=== PATIENT | male | born 1980 | race Caucasian/White ===

== ENCOUNTER 2020-02-27 16:36 | Emergency (ER) | payer OTHER, SELFPAY ==
--- NOTE | ~2020-02-27 | CT_ITS ---
EXAMINATION: CT abdomen pelvis w con DATE: 02/27/2020 18:11 INDICATION: Abdominal pain and diarrhea TECHNIQUE: Computed tomography (CT) of the abdomen and pelvis was performed with 100 mL Omnipaque-350 intravenous contrast. Automated exposure control and iterative reconstruction technique were employe d. The dose-length product was 1245.81 mGy-cm. COMPARISON: None FINDINGS: Lung bases are clear. Heart size is normal. No pericardial or pleural effusion. Diffuse hepatic steat osis with focal sparing along the gallbladder fossa. Gallbladder, spleen, pancreas and bilateral adre nal glands are normal. Bilateral renal cysts the largest measuring 8 mm the lower pole of the right k idney. There is prominent diverticulosis along the sigmoid colon without adjacent inflammatory change to suggest diverticulitis. Normal appendix. Fluid in the small bowel and proximal colon consistent with given history of diarrhea. Small fat-containing umbilical hernia. Bladder is normal. No free int raperitoneal gas or fluid. No pathologically enlarged abdominal or pelvic lymphadenopathy. Mild scatt ered degenerative skeletal changes. IMPRESSION: 1. Fluid in the small bowel and proximal colon consistent with given history of diarrhea. Correlate c linically for gastroenteritis. 2. Diffuse hepatic steatosis. 3. Small fat-containing umbilical hernia. Reviewed, dictated and finalized at location A. IMPRESSION: 1. Fluid in the small bowel and proximal colon consistent with given history of diarrhea. Correlate clinically for gastroenteritis. 2. Diffuse hepatic steatosis. 3. Small fat-containing umbilical hernia.
--- NOTE | ~2020-02-27 | XR_ITS ---
EXAMINATION: XR chest 1V portable DATE: 02/27/2020 18:21 INDICATION: Fever, nausea and diarrhea. TECHNIQUE: frontal view of the chest was obtained. COMPARISON: None FINDINGS: The lungs are clear with no focal airspace opacities, pulmonary edema, pleural effusion or pneumothor ax. The cardiomediastinal silhouette is normal. Visualized bones and soft tissues are unremarkable. IMPRESSION: 1. No acute cardiopulmonary disease. Reviewed, dictated and finalized at location A.
[2020-02-27 16:41] VITALS: BP 120/84; PULSE 108; RESP 19; TEMP 38.2; O2SAT 97
[2020-02-27 16:43] VITALS: BP 120/84; PULSE 110; RESP 16; O2SAT 97
--- NOTE | 2020-02-27 16:58 | ED.GENADULT ---
HPI - General Adult General Chief complaint: Fever Stated complaint: muscle aches, diarrhea, fever Time Seen by Provider: 02/27/20 16:37 Source: patient History of Present Illness HPI narrative: Patient is a 40 y/o male complaining of severe diarrhea for last 4 days. He states that his diarrhea is mostly water with no blood. There is no alleviating or exacerbating factor. He has some mild left lower abdominal pain. He also has fever up to 102, body ache and headache. He has some nausea, but no vomiting. He has no cough or SOB. He states that someone at work tested positive for COVID recently. Related Data Home Medications Medication Instructions Recorded Confirmed acetaminophen [Tylenol Extra 1,000 mg PO Q6H PRN 02/27/20 02/27/20 Strength] ergocalciferol (vitamin D2) 1,250 mcg PO WEEKLY 02/27/20 [Vitamin D2] Allergies Allergy/AdvReac Type Severity Reaction Status Date / Time shellfish derived Allergy Hives Verified 02/27/20 16:44 Review of Systems Constitutional: Constitutional: Reports chills, Reports fever(s), Reports headache(s) and Denies weakness Eyes: Eyes: Denies blurry vision ENT: Reports headache(s) and Denies neck pain Cardiovascular: Cardiovascular: Denies chest pain and Denies dyspnea Respiratory: Respiratory: Denies cough and Denies dyspnea Gastrointestinal: Gastrointestinal: Reports abdominal pain, Reports diarrhea, Reports nausea and Denies vomiting Genitourinary: Genitourinary: Denies hematuria and Denies dysuria Musculoskeletal: Musculoskeletal: Denies back pain and Denies neck pain Neurologic: Reports headache(s) and Denies weakness [facility] Social History Social History Gender identity (if verbalized by the patient): Male Exam Const: General: no acute distress and well developed Orientation/consciousness: oriented to person, oriented to place, oriented to time and patient oriented x3 HENMT: Head: normocephalic Ears: external ears normal General nose exam: Normal external nose present Eyes: General: appearance normal, both eyes and all related structures Conjunctivae: conjunctivae normal Neck: Neck: normal visual inspection and full ROM Chest: Chest palpation & inspection: normal inspection of the chest and no tenderness Resp: Effort & Inspection: normal respiratory effort Auscultation: clear to auscultation bilaterally Cardio: Rate: tachycardic Rhythm: regular rhythm GI: GI Palp: No abdominal tenderness and Yes Soft to palpation Skin: General skin exam: normal color and turgor normal Neuro: General: oriented to person, oriented to place, oriented to time and patient oriented x3 Cognition (Neuro): normal cognition Extrem: General: normal to inspection, full ROM and no pedal edema Psych: Appearance: grossly normal Mental Status: mental status grossly normal Affect: normal affect Course Vital Signs Vital signs: Vital Signs Temperature 38.2 C H 02/27/20 16:41 Pulse Rate 108 H 02/27/20 16:41 Respiratory Rate 19 02/27/20 16:41 Blood Pressure 120/84 02/27/20 16:41 Pulse Oximetry 97 02/27/20 16:41 Temperature 38.7 C H 02/27/20 17:06 Pulse Rate 81 02/27/20 19:59 Respiratory Rate 20 02/27/20 19:59 Blood Pressure 109/71 02/27/20 19:59 Pulse Oximetry 96 02/27/20 19:59 Medical Decision Making Vital Signs Vital Signs: Vital Signs Temperature 38.2 C H 02/27/20 16:41 Pulse Rate 108 H 02/27/20 16:41 Respiratory Rate 19 02/27/20 16:41 Blood Pressure 120/84 02/27/20 16:41 Pulse Oximetry 97 02/27/20 16:41 Temperature 38.7 C H 02/27/20 17:06 Pulse Rate 81 02/27/20 19:59 Respiratory Rate 20 02/27/20 19:59 Blood Pressure 109/71 02/27/20 19:59 Pulse Oximetry 96 02/27/20 19:59 Lab Data Result diagrams: 02/27/20 17:02 02/27/20 17:02 Labs: Lab Results 02/27/20 02/27/20 02/27/20 Range/Units 17:02 17:02 17:02
[2020-02-27 17:06] VITALS: BP 113/76; PULSE 99; RESP 16; TEMP 38.7; O2SAT 95
[2020-02-27] MEDS: SODIUM CHLORIDE 0.9% IV 1,000 ML 999 ML IV CONT (17:07)
[2020-02-27] MEDS: ONDANSETRON INJ 4 MG/2 ML VIAL IV PUSH (17:07)
[2020-02-27 17:12] LABS: Basophils Percent Auto 0.3 % (0.2-1.2); Eosinophils Percent Auto 0.3 % (0-4.4); Hematocrit 45.8 % (42.0-52.0); Hemoglobin 15.7 g/dL (14.0-18.0); Immature Granulocyte Absolute 0.01 K/mm3 (0.00-0.031); Immature Granulocyte Percent A 0.3 % (0-0.5); Lymphocytes Absolute Auto 0.89 K/mm3 (0.9-3.2); Lymphocytes Percent Auto 24.7 % (18.3-44.2); Mean Corpuscular HGB Conc 34.3 g/dl (32-36); Mean Corpuscular Hemoglobin 29.5 pg (26-34); Mean Corpuscular Volume 86.1 fl (80-100); Monocytes Absolute Auto 0.2 K/mm3 (0.1-0.6); Monocytes Percent Auto 5.8 % (2.6-8.5); Neutrophils Absolute Auto 2.5 K/mm3 (1.3-6.7); Neutrophils Percent Auto 68.6 % (45.5-73.1); Platelet Count Result 159 k/mm3 (150-375); Red Blood Count 5.32 M/mm3 (4.6-6.20); Red Cell Distribution Width 13.2 % (11.5-14.5); White Blood Count 3.6 K/mm3 (4.5-10.0)
[2020-02-27 17:25] LABS: Alanine Aminotransferase 48 U/L (4-50); Albumin Level 4.4 g/dL (3.5-5.1); Alkaline Phosphatase 50 U/L (38-126); Anion Gap 8 mmol/L (8-16); Aspartate Amino Transferase 36 U/L (17-59); Bilirubin,Total 0.2 mg/dL (0.2-1.3); Blood Urea Nitrogen 12 mg/dL (9-20); Calcium 8.5 mg/dL (8.4-10.2); Carbon Dioxide 26 mmol/L (22-30); Chloride 105 mmol/L (98-107); Estimated CRCL calculation 102 ml/min; Estimated Glomerular Filt Rate > 60; Glucose 104 mg/dL (75-110); Potassium 3.8 mmol/L (3.4-5.0); Sodium 139 mmol/L (137-145)
[2020-02-27] MEDS: ACETAMINOPHEN 325 MG TABLET 650 MG PO (17:39)
[2020-02-27 18:09] LABS: Add Urine Microscopic? NO; Appearance Urine Clear (Clear); Bilirubin Urine Negative (Negative); Blood Urine Negative (Negative); Color Urine Yellow (Yellow); Glucose Urine UA Negative (Negative); Ketones Urine Negative (Negative); Leukocyte Esterase Ur Negative LEU/UL (Negative); Nitrate Urine Negative (Negative); Protein Urine Negative (Negative); Specific Grav Ur 1.017 (1.001-1.035); Urobilinogen Urine Negative mg/dL (<2.0)
[2020-02-27 19:59] VITALS: BP 109/71; PULSE 81; RESP 20; O2SAT 96
[2020-02-28 12:40] LABS: SARS-CoV-2 RNA PCR Positive
== END 2020-02-27 20:01 | disposition home or self-care (01) ==
PROVIDERS: Emergency Provider Emergency Medicine; PCP Internal Medicine
DX: U07.1 COVID-19 (principal); K52.9 Noninfective gastroenteritis and colitis, unspecified
CPT/HCPCS: 36415; 71045; 74177; 80053; 81003; 83605; 85025; 87040; 87635; 96361; 96374; 99284; A9270; C9803; J2405; J7030; Q9967; U0003

== ENCOUNTER 2023-01-11 23:00 | Emergency (ER) | payer OTHER, SELFPAY ==
[2023-01-11 23:02] VITALS: BP 125/108; PULSE 82; RESP 16; TEMP 36.7; O2SAT 99
[2023-01-12] VITALS (15 sets, daily range): BP systolic 128–138; BP diastolic 71–82; O2SAT 96–100
--- NOTE | 2023-01-12 01:59 | ED.GENADULT ---
HPI - General Adult General Chief complaint: Extremity Problem,Nontraumatic Stated complaint: right leg pain Time Seen by Provider: 01/12/23 01:42 Source: patient Mode of arrival: ambulatory Limitations: no limitations History of Present Illness HPI narrative: This is a 42-year-old male who presents to the ED with chief complaint of right knee pain onset earlier this evening. Patient states that he has had a little bit of swelling to the right anterior knee. Denies any injuries or traumas. Denies any known insect bites or wounds. 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 He states he was not wearing his knee guards this week. Reports sensation feels off in the right lower extremity. Denies weakness. Denies erythema Related Data Home Medications Medication Instructions Recorded Confirmed naproxen sodium 220 mg tablet 220 mg PO BID PRN 10/02/22 10/04/22 (Aleve) Allergies Allergy/AdvReac Type Severity Reaction Status Date / Time shellfish derived Allergy Hives Verified 10/02/22 11:05 [facility] Surgical History Surgical History Salivary disorder Removal of gland 1988 Family History Family History Mother Breast cancer Father Heart disease Social History Social History Smoking status: Never smoker Alcohol intake: current Substance use: unknown Lack of Transportation: No Lack of Food: Never True Current Housing: I Have Housing Concerned About Future Housing: No Difficulty Paying Gas/Electric Bills: No Difficulty Paying for Meds: No Currently Unemployed: No Education: Bachelor's Degree Difficulty w/ Childcare or Family Care: No Gender identity (if verbalized by the patient): Male Exam Narrative: GENERAL: Well-appearing, well-nourished, and in no acute distress. HEAD: Normocephalic, atraumatic. EYES: PERRLA and EOMI. ENT: Nares clear, no rhinorrhea or epistaxis. Mucous membranes moist. Oropharynx without tonsillar hypertrophy exudate or other lesions. NECK: Supple. No adenopathy or masses. CHEST: No respiratory distress. Clear to auscultation. No wheezes rales or rhonchi HEART: Regular rate and rhythm. No murmur heard. Normal peripheral pulses. ABDOMEN: Soft, nontender, nondistended, normal active bowel sounds. MSK: RLE: Small area of tenderness and swelling to the Pes anserine bursa. No erythematous skin noted. Neurovascular intact distally. LLE: Benign SKIN: Warm, dry, no rash. NEURO: Alert and oriented x3. No focal deficits. PSYCH: Normal mood and affect. Course Vital Signs Vital signs: Vital Signs Temperature 98.1 F 01/11/23 23:02 Pulse Rate 82 01/11/23 23:02 Respiratory Rate 16 01/11/23 23:02 Blood Pressure 125/108 H 01/11/23 23:02 Pulse Oximetry 99 01/11/23 23:02 Oxygen Delivery Room Air 01/11/23 23:02 Temperature 98.1 F 01/11/23 23:02 Pulse Rate 82 01/11/23 23:02 Respiratory Rate 16 01/11/23 23:02 Blood Pressure 125/108 H 01/11/23 23:02 Pulse Oximetry 99 01/11/23 23:02 Oxygen Delivery Room Air 01/11/23 23:02 Procedures Abscess I/D lower extremity: Date of Incision: 01/12/23 Time of Incision: 02:38 Side (if applicable): right Sedation/analgesia: none Local Anesthetic: lidocaine 1% and with epi Amount of anesthesia used (mL): 4 Technique: incised with #11 blade Amount of fluid expressed (mL): 2 Irrigation: Yes Packing used?: none I&D Results: Blood Abcess I&D Additional Comments: Unable to express any purulent material. Nonadherent dressing placed. No immediate complications. Tolerated the procedure well. Medical Decision Making MDM Narrative Medical decision making narrative: This is a 42-year-old male who presents
[2023-01-12] MEDS: KETOROLAC 30 MG/ML VIAL (*BKC) IM (03:06)
== END 2023-01-12 03:11 | disposition home or self-care (01) ==
PROVIDERS: Emergency Provider Physician Assistant; PCP Physician Assistant
DX: M70.51 Other bursitis of knee, right knee (principal)
CPT/HCPCS: 10060; 96372; 99283; J1885